=== PATIENT | female | born 1950 | race Caucasian/White ===

== ENCOUNTER 2016-07-15 08:12 | Emergency (ER) | payer MEDICARE, BC ==
[~2016-07-15] VITALS: Ht 172.7 cm; Wt 89.0 kg
[~2016-07-15 08:12] MED LIST: ASPIRIN EC81 MG PO; ASPIRIN LOW81 M1 PO; DOXYCYCL HYC100 MG PO; FISH OIL1000 MG PO; FISH OIL1200 M1 PO; FLONASE NASAL50 MCG; KETOROLAC0.5 %; MUCINEX600 MG PO; MULT VITAMI1 PO; PRED FORTE1 % OP; PRED FORTE1 % OS; PREDNISOLONE; SYSTANE CONTACTS SOO OU; TIMOLOL 0.25%5 ML OP; TOBRAMYCIN0.3 % OP; ZITHROMAX500 MG PO; [UNRECOGNIZED DRUG - CODE] OU
[2016-07-15 08:46] LABS: HEMATOCRIT 43.9 % (37.0-47.0); HEMOGLOBIN 14.8 g/dl (12.0-16.0); IMMATURE GRANULOCYTES 0.5 % (0.0-1.0); MEAN CORPUSCULAR HGB 30.3 pG CALC (26.0-32.0); MEAN CORPUSCULAR HGB CONC 33.7 g/L CALC (32.0-36.0); NEUT# 2.89 thou/uL (2.00-7.15); RED BLOOD COUNT 4.88 mill/uL (4.20-5.60); RED CELL DISTRI WIDTH 13.2 % (11.5-15.5)
[2016-07-15 09:01] LABS: PROTHROMBIN TIME 10.3 SECONDS (9.0-12.5)
[2016-07-15 09:08] LABS: ALBUMIN 4.6 g/dL (3.2-5.0); ALKALINE PHOSPHATASE 69 u/l (38-126); ANION GAP 16 (6-22 (CALC)); BILIRUBIN, TOTAL 0.4 mg/dL (0.0-1.4); BUN 17 mg/dL (8-23); BUN/CREATININE RATIO 22 (12-20 (CALC)); CALCIUM 9.6 mg/dL (8.4-10.2); CARBON DIOXIDE 24 mmol/l (22-30); CHLORIDE 108 mmol/l (95-108); CREATININE 0.8 mg/dL (0.5-1.0); GFR > 60 ML/MIN (>=60 (CALC)); GFR FOR AFR.AMER. > 60 ML/MIN (>=60 (CALC)); GLUCOSE 83 mg/dL (82-115); POTASSIUM 4.1 mmol/l (3.5-5.1); SGOT/AST 33 u/l (9-36); SGPT/ALT 35 u/l (11-66); SODIUM 144 mmol/l (137-146); TOTAL PROTEIN 7.7 g/dL (6.3-8.2)
[2016-07-15 09:20] LABS: MYOGLOBIN 54 ng/mL (0 - 62)
[2016-07-15 13:01] LABS: URINE BILIRUBIN - DIPSTICK NEGATIVE (NEGATIVE); URINE BLOOD DIPSTICK NEGATIVE (NEGATIVE); URINE CLARITY CLEAR; URINE COLOR YELLOW; URINE GLUCOSE - DIPSTICK NEGATIVE (NEGATIVE); URINE KETONE NEGATIVE (NEGATIVE); URINE LEUK ESTERASE NEGATIVE (NEGATIVE); URINE NITRITE - DIPSTICK NEGATIVE (Negative); URINE PH 7.5 (4.5-8.0); URINE PROTEIN - DIPSTICK NEGATIVE (NEG-TRACE); URINE SPECIFIC GRAVITY <=1.005; URINE UROBILINOGEN - DIPSTICK 0.2 E.U./dL (0.2)
[2016-07-15] MEDS ORDERED: MEDDOSEPAK PO (15:03)
[2016-07-15 15:06] VITALS: BP 176/85
== END 2016-07-15 15:14 | disposition home or self-care (01) ==
LOC: ED 08:12
PROVIDERS: Emergency Medicine
DX: R20.0 Anesthesia of skin (principal); R11.0 Nausea; R94.31 Abnormal electrocardiogram [ECG] [EKG]; M47.812 Spondylosis without myelopathy or radiculopathy, cervical region

== ENCOUNTER 2020-01-26 08:15 | Emergency (ER) | payer MEDICARE, BC ==
[~2020-01-26] VITALS: Ht 172.7 cm; Wt 90.9 kg
[~2020-01-26 08:15] MED LIST changes: +MEDDOSEPAK PO
[2020-01-26] MEDS ORDERED: IBUPROFEN600 MG PO (10:04)
[2020-01-26 10:15] VITALS: BP 200/88
== END 2020-01-26 10:15 | disposition home or self-care (01) ==
LOC: ED 08:15
PROC: 2W3MX1Z Immobilization of Left Lower Extremity using Splint (ICD-10-PCS; principal; 2020-01-26)
DX: S52.102A Unspecified fracture of upper end of left radius, initial encounter for closed fracture (principal); W01.0XXA Fall on same level from slipping, tripping and stumbling without subsequent striking against object, initial encounter; Y92.009 Unspecified place in unspecified non-institutional (private) residence as the place of occurrence of the external cause

== ENCOUNTER 2024-03-22 06:49 | Emergency (ER) | payer MEDICARE, BC ==
[~2024-03-22] VITALS: Ht 172.7 cm; Wt 85.2 kg
[2024-03-22] VITALS (11 sets, daily range): BP systolic 143–183; BP diastolic 71–88
[~2024-03-22 06:49] MED LIST changes: +IBUPROFEN600 MG PO
[2024-03-22] MEDS ORDERED: ONDANSETRON HCl 4 MG/2 ML SDV IV ONE (07:20)
[2024-03-22 07:25] LABS: URINE BILIRUBIN - DIPSTICK Negative (NEGATIVE); URINE BLOOD DIPSTICK Negative (NEGATIVE); URINE COLOR Yellow; URINE GLUCOSE - DIPSTICK Negative (NEGATIVE); URINE KETONE Trace mg/dL (NEGATIVE); URINE LEUK ESTERASE Negative (NEGATIVE); URINE NITRITE - DIPSTICK Negative (Negative); URINE PH 6.5 (4.5-8.0); URINE PROTEIN - DIPSTICK 30 mg/dL (NEG-TRACE); URINE UROBILINOGEN - DIPSTICK 0.2 E.U./dL (0.2)
[2024-03-22 07:29] LABS: BASO% 0.2 % (0-3); EOS% 0.6 % (0-8); HEMOGLOBIN 13.6 g/dl (12.0-16.0); IMMATURE GRANULOCYTES 0.7 % (0.0-5.0); LYMPH% 13.8 % (15-41); MEAN CELL VOLUME 91.7 fL CALC (80.0-100.0); MEAN CORPUSCULAR HGB 29.7 pG CALC (26.0-32.0); MEAN CORPUSCULAR HGB CONC 32.4 g/dL CAL (32.0-36.0); MONO% 10.4 % (2-13); NEUT# 9.03 thou/uL (2.00-7.15); NEUT% 74.3 % (42-76); RED BLOOD COUNT 4.58 mill/uL (4.20-5.60); RED CELL DISTRI WIDTH 12.5 % (11.5-15.5)
[2024-03-22 07:32] LABS: URINE MUCUS FEW hpf (NONE-FEW); URINE RBC 0-2 RBC/hpf (0-5); URINE SQUAMOUS EPITHELIAL CELL RARE EPI/hpf (0-FEW); URINE WBC 0-2 WBC/hpf (0-5)
[2024-03-22 07:43] LABS: ALBUMIN 3.7 g/dL (3.2-5.0); CREATININE 0.6 mg/dL (0.5-1.0); POTASSIUM 3.7 mmol/l (3.5-5.1); TOTAL PROTEIN 6.5 g/dL (6.3-8.2)
[2024-03-22 07:46] LABS: BILIRUBIN, TOTAL 0.8 mg/dL (0.02-1.3)
[2024-03-22] MEDS ORDERED: MORPHINE SULFATE 4 MG/ML VIAL IV ONE (08:50)
[2024-03-22] MEDS ORDERED: CIPROFLOXACN500 MG PO (08:58)
[2024-03-22] MEDS ORDERED: TORADOL PO (08:58)
[2024-03-22] MEDS ORDERED: METRONIDAZOLE500 MG PO (08:58)
[2024-03-22] MEDS ORDERED: SODIUM CHLORIDE 0.9% 1,000 ML IV ONE (09:00)
[2024-03-22] MEDS ORDERED: BACTRIM DS1 TAB PO (10:17)
== END 2024-03-22 11:07 | disposition home or self-care (01) ==
LOC: ED 06:49 → ED-I 08:30 → ED 11:07
PROVIDERS: Family Medicine
DX: K57.32 Diverticulitis of large intestine without perforation or abscess without bleeding (principal); T88.7XXA Unspecified adverse effect of drug or medicament, initial encounter; T36.8X5A Adverse effect of other systemic antibiotics, initial encounter
CPT/HCPCS: J0744; J1836; J2405; Q9967